=== PATIENT | female | born 1960 | race Caucasian/White ===

== ENCOUNTER 2018-03-01 20:24 | Observation (INO) ==
--- NOTE | 2018-03-01 20:48 | Emergency Department Report ---
Fall HPI - General Chief Complaint: Fall Stated Complaint: fell left hip pain Time Seen by Provider: 03/01/18 20:44 Source: patient Mode of arrival: EMS Limitations: no limitations - History of Present Illness HPI Narrative: Patient slipped on water inside her house just [employer] and fell, landing on her right hip/buttock. Patient has hx of arthritis and has somewhat chronic pain to hips. Patient has not ambulated or stood on her leg since the injury. Patient became hypotensive with sys pressure in the 60's and then 70's for EMS shortly after transfer. There was no indication by EMS or patient that hypotension was present prior to the fall. EMS gave 400 ml NS and pressure to 110 and then 102 systolically. Patient denies any feelings of being faint or like she was going to pass out during time of her low blood pressure. Patient states that she does get this way "at times" but it has never lasted this long. Takes losartin 50 mg po daily in the AM . Does not take any narcotic pain medication at home. Has not had N/v or other sources of volume depletion. No bloody stools and patient has had a hysterectomy. MD complaint: fall Onset (ago): minute(s) Fall from: standing Fall witnessed: yes, by family Place fall occurred: home Loss of consciousness: none Symptoms prior to fall: none - Related Data Home Medications Medication Instructions Recorded Confirmed Gabapentin 300 mg PO BID #0 06/28/12 03/01/18 Cozaar (losartan) 50 mg tablet 50 mg PO DAILY 90 Days #90 tab 09/20/17 03/01/18 conjugated estrogens 0.625 mg/gram 1 applicatio VG DAILY 30 Days #30 g 09/20/17 03/01/18 vaginal cream trazodone 50 mg tablet 50 mg PO HS 90 Days tab 09/20/17 03/01/18 Esomeprazole Magnesium [Nexium] 20 mg PO DAILY 10/10/17 03/01/18 Celecoxib [Celecoxib] 200 mg PO DAILY 03/01/18 03/01/18 Cyclobenzaprine HCl 10 mg PO BID 03/01/18 03/01/18 [Cyclobenzaprine HCl] Lifitegrast [Xiidra] 1 drop EACH EYE BID 03/01/18 03/01/18 Naltrexone HCl/Bupropion HCl 1 each PO DAILY 03/01/18 03/01/18 [Contrave ER 8-90 mg Tablet] Allergies Allergy/AdvReac Type Severity Reaction Status Date / Time No Known Allergies Allergy Verified 03/01/18 20:49 Review of Systems All systems: reviewed and negative except as stated Constitutional: Reports: as per HPI. Denies: fever, chills Eyes: Denies: eye discharge ENT: Denies: ear pain, throat pain Cardiovascular: Denies: chest pain, palpitations Respiratory: Denies: cough, dyspnea Gastrointestinal: Denies: abdominal pain, nausea Musculoskeletal: Reports: as per HPI, other (right hip, buttock) Integumentary: Denies: rash, swelling Neurological: Denies: headache, weakness, numbness, paresthesias PFSH Patient Stated Medical History Hypertension Yes Pneumonia Yes Sleep Apnea No Gastroesophageal Reflux Yes Disease Osteoarthritis Yes Depression Yes Clinic Medical History (Last Reviewed 01/28/18 @ 13:27 by REGGIE Hughes ) Arthritis (Acute Medical) High blood pressure (Acute Medical) Surgical History: Knee Surgery x2, Knee Replacements x2, Hysterectomy 1996,. RT SHOULDER DIAGNOSTIC ARTHROSCOPIC WITH DEBRIDEMENT OF ANTERIOR AND SUPERIOR LABRUM,LONG HEAD BICEPS AND RCR,BICEPS TENOTOMY 10-10-17 Family History: Family History (Last Reviewed 01/28/18 @ 13:27 by REGGIE Hughes) Mother Arthritis Cancer of breast High blood pressure Muscle disease Father Heart failure High cholesterol Cancer Maternal Grandmother Cancer Unknown Cancer - Social History Smoking status: Former smoker second hand exposure: No Substance use type: does not use Alcohol intake: current Alcohol intake frequency: other Household members: spouse Current occupational status: employed Does patient use chewing tobacco?: No Physical Exam - Limitations Limitations: no limitations - General General appearance: alert, in no apparent distress - Normal Exams: Head:: Normocephalic without trauma Eyes:: Pupils are PERRLA w/ EOMI, No scleral icterus, irritation, or foreign bodies noted ENMT:: No facial trauma, nasal exudates, pharyngeal erythema, or exudates are noted Neck:: Full range of motion, without adenopathy, JVD, bruits or thyromegaly Chest/Respirations:: Clear all white, with good airflow, and symmetry bilaterally Cardiovascular:: Regular rate and rhythm Abdomen:: Bowel sounds positive, soft, non-tender, non-distended, no hepatosplenomegaly, masses or bruits noted Lymphatic:: No lymphadenopathy, or lymphedema noted Integumentary:: No rashes, hives, or bruising noted, hair and nails, without abnormality Neurological:: Patient is alert, and oriented, cranial nerves, motor/sensory/ cerebellar, exams w/o gross deficits, to observation Psychiatric:: Patient exhibits, appropriate attention, emotion and affect - Expanded Lower Extremity Exam right Hip/Pelvis exam: Present: tenderness. Absent: external rotation, internal rotation Course Course Narrative: 2134: XRAY of hip/pelvis negative read by Dr Viera. Conrad given and will attempt to ambulate patient. 2219: Patient was able to ambulate with some discomfort but was able to do so. She walked to the bathroom to void and then felt like she was going to pass out. She was placed in a wheelchair and wheeled back to bed. Patient was placed supine and laid there for several minutes before blood pressure was obtained. Systolic pressure at that time was 101. Patient is currently on her 2nd liter of fluids having received 1 L that was started by EMS with initial low blood pressure reading. Will use additional IV fluids and check patient periodically for orthostatic hypotension. Patient denies any chest pain at any time and states that the reason she fell had nothing to do with feeling lightheaded. Reiterates that she had slipped on the slick floor. 2400: Patient had received 2 liters of NS and blood pressure reassessed. Initially 100 systolically but patient felt well. She was allowed to sit at bedside for 15 minutes and started to again feel light headed and "woozy" Blood pressure taken and sys pressure in 70's. Patient was placed back in bed and EKG and lab work will be done. 0035: Patients care will be assumed by Dr Viera. EKG done and is SR. Lab work being done. Dr Pena notified and patient will be admitted to telemetry for observation due to hypotension. Patient is in agreement. Troponin is pending; Other lab work is back. On review of lab hx , hgb in September was 13.6 and today is 11.2 however this was drawn over 1 hour post bolus of 2 liters NS. - Consultations Consultation #1: Dr Pena Time: 00:54 (will admit/telemetry,obs ) Vital Signs Temperature 98.0 F 03/01/18 20:26 Pulse Rate 85 03/01/18 20:26 Respiratory Rate 18 03/01/18 20:26 Blood Pressure 110/59 03/01/18 20:26 Pulse Oximetry 90 03/01/18 20:26 Temperature 98.0 F 03/01/18 20:26 Pulse Rate 85 03/01/18 20:26 Respiratory Rate 18 03/01/18 20:26 Blood Pressure 110/59 03/01/18 20:26 Pulse Oximetry 90 03/01/18 20:26 Fall - Differential Diagnosis Likely: syncope - Medical Records Attestation: I reviewed the patient's medical records. - Lab Data Attestation: I reviewed the patient's lab results. Result diagrams: 03/02/18 00:16 03/02/18 00:16 - Radiology Data Attestation: I reviewed the patient's radiology results. Disposition Clinical Impression: Orthostatic hypotension Contusion of hip, right Qualifiers: Encounter type: initial encounter Qualified Code(s): S70.01XA - Contusion of right hip, initial encounter Disposition: 02 To OBS [facility] [place] Print Language: Croatian Instructions: Hypotension (ED), Hip Contusion (ED) Additional Instructions: Prescriptions: No Action Gabapentin 300 mg PO BID #0 Esomeprazole Magnesium [Nexium] 20 mg PO DAILY Celecoxib [Celecoxib] 200 mg PO DAILY Naltrexone HCl/Bupropion HCl [Contrave ER 8-90 mg Tablet] 1 each PO DAILY Lifitegrast [Xiidra] 1 drop EACH EYE BID Cyclobenzaprine HCl [Cyclobenzaprine HCl] 10 mg PO BID trazodone 50 mg tablet 50 mg PO HS 90 Days tab conjugated estrogens 0.625 mg/gram vaginal cream 1 applicatio VG DAILY 30 Days #30 g Cozaar (losartan) 50 mg tablet 50 mg PO DAILY 90 Days #90 tab Referrals: Janna Palumbo MD [Primary Care Provider] - 1 Week Time of Disposition: 00:58 - Seen By: midlevel and physician
[2018-03-01] MEDS: NS 1,000 ML IV SCH (21:07)
[2018-03-01] MEDS: HYDROCODONE/APAP 5mg/325mg TABLET PO PRN (21:37)
[2018-03-02] MEDS ORDERED: ACETAMINOPHEN 325 MG TABLET PO PRN (01:41)
[2018-03-02] MEDS ORDERED: ONDANSETRON 4 MG/2 ML INJECTION IVP PRN (01:41)
[2018-03-02 01:43] VITALS: BMI 41.9
[2018-03-02] MEDS: NS 1,000 ML IV SCH ×3 (02:00→11:44)
--- NOTE | 2018-03-02 02:20 | History & Physical Report ---
History of Present Illness Date: 03/02/18 Chief complaint: right hip pain HPI: This is a 57 y/o female who is relatively healthy with a history of HTN and OA. The patient slipped on a wet floor tonight and landed on her right side. She has right hip pain and right knee pain. The patient presents to the ED where plain films of her hip are without evidence of fracture. While in the ED she c/ o light headedness. This occurred after the fall and she received no significant narcotic pain meds. Her blood pressure was in the 70's and after 2 liters of fluids her pressure continued to be low. The patient had no headache , no chest pain, no SOA, no PND, no palpitations. No abdomen pain, no nausea or vomiting, no change in her BM with a normal BM this am. no pain except for her right knee and hip. Cardiac workup in the ED was negative including EKG and troponin. The patient at this time will be admitted for monitoring and repeat labs to furthe assess the nature of her hypotension. she is not anticoagulated. She is denying and abdomen or back pain. Review of Systems Review of systems: negative except for described by HPI. Past Medical History Medical History: Medical History (Last Reviewed 01/28/18 @ 13:27 by REGGIE Hughes) Arthritis High blood pressure Surgical History: Knee Surgery x2, Knee Replacements x2, Hysterectomy 1996,. RT SHOULDER DIAGNOSTIC ARTHROSCOPIC WITH DEBRIDEMENT OF ANTERIOR AND SUPERIOR LABRUM,LONG HEAD BICEPS AND RCR,BICEPS TENOTOMY 10-10-17 Family History: Family History (Last Reviewed 01/28/18 @ 13:27 by REGGIE Hughes) Mother Arthritis Cancer of breast High blood pressure Muscle disease Father Heart failure High cholesterol Cancer Maternal Grandmother Cancer Unknown Cancer Family History: As Above - Social History Smoking status: Former smoker Substance use type: does not use Alcohol intake frequency: a few times a month Housing: house Household members: spouse service: No Current occupational status: employed 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 Current residence: Apartment/Private Home Medications Home Medications Medication Instructions Recorded Confirmed Type Gabapentin 300 mg PO BID #0 06/28/12 03/01/18 History Cozaar (losartan) 50 mg tablet 50 mg PO DAILY 90 Days #90 tab 09/20/17 03/01/18 History conjugated estrogens 0.625 mg/gram 1 applicatio VG DAILY 30 Days #30 g 09/20/17 03/01/18 History vaginal cream trazodone 50 mg tablet 50 mg PO HS 90 Days tab 09/20/17 03/01/18 History Esomeprazole Magnesium [Nexium] 20 mg PO DAILY 10/10/17 03/01/18 History Celecoxib [Celecoxib] 200 mg PO DAILY 03/01/18 03/01/18 History Cyclobenzaprine HCl 10 mg PO BID 03/01/18 03/01/18 History [Cyclobenzaprine HCl] Lifitegrast [Xiidra] 1 drop EACH EYE BID 03/01/18 03/01/18 History Naltrexone HCl/Bupropion HCl 1 each PO DAILY 03/01/18 03/01/18 History [Contrave ER 8-90 mg Tablet] Allergies Allergy/AdvReac Type Severity Reaction Status Date / Time No Known Allergies Allergy Verified 03/01/18 20:49 Exam Vital Signs: Temperature 98.0 F 03/01/18 20:26 Pulse Rate 80 03/02/18 01:15 Respiratory Rate 20 03/02/18 01:15 Blood Pressure 126/76 03/02/18 01:15 Pulse Oximetry 99 03/02/18 01:15 Telemetry Rhythm: Sinus Rhythm Height/Weight/BMI: Height 1.6 m Weight 107.4 kg Body Mass Index 41.9 - Constitutional Present: mild distress - Routine HEENT Exam Head: Present: normocephalic, atraumatic Eye: Present: EOMI, conjunctivae pink ENT: Present: mucous membranes moist - Routine Neck Exam Present: supple, full ROM - Routine Respiratory Exam Present: CTA bilaterally - Routine Cardiovascular Exam Present: RRR, no murmur - Routine Abdominal Exam Present: soft, normoactive bowel sounds, non distended, non tender - Routine Extremities Exam Comments: pain with flexion of her right hip and her right knee - Routine Back/Spine/Pelvis Exam Back/Spine: Present: full ROM - Routine Skin Exam Present: intact, dry, warm. Absent: mottling - Routine Neurological Exam Present: oriented X3, CN II-XII intact, moving all extremities, normal tone, vision grossly intact, hearing grossly intact, normal speech - Routine Psychiatric Exam Present: normal affect, normal thought process Results - Labs CBC & Chem 7: 03/02/18 06:00 03/02/18 06:00 Labs: reviewed and will be discussed below plain xray of right hip neg for acute fx. Assessment and Plan (1) Orthostatic hypotension Current visit: Yes Status: Acute (2) Contusion of hip, right Current visit: Yes Status: Acute (3) Normocytic anemia Current visit: Yes Status: Acute Assessment and Plan: 1. contusion to right hip and right knee acute POA; plain film of hip negative. PT and OT cx, if pain not improved consider CT of right hip to exclude occult fracture, oral pain meds prn 2. hypotension acute POA: cause not clear. possible related to acute pain. patient does take Cozaar and took today. No extra dosing that can be determined Currently improved after fluids. If still an issue in the am and rules out with labs being stable, consider echo to exclude effusion 3. HTN chronic not POA; at this time hold cozaar. (see comment above) 4. normocytic anemia chronic POA: down 2 grams over the past 2 years. repeat labs in the am. there is absolutely no evidence of acute bleeding in this patient. 5. DVT ppx; SCd, lovenox 6. gastric ppx; PPI DVT Prophylaxis: SCD's, Lovenox GI Prophylaxis: Protonix Resuscitation Status: Full Code - Time spent with patient Time with patient PN: 35 minutes - Physician Narrative Physician: Nubia Montgomery MD Narrative: Date: 03/02/18 Time: 1025 Dr. Pena's note reviewed. Mrs. Loving interviewed and examined. CC: Fall, right hip/knee pain with subsequent dizziness HPI: Mrs. Loving's 57-year-old female with prior bilateral right TKAs who slipped on a wet floor yesterday evening and landed on her right side. She was unable to get up independently due to right hip and knee pain. When she fell she had a clipper in her hand and struck her right mueller causing superficial laceration. She presented to the emergency room where x-rays of the right hip were unremarkable and she was initially preparing to discharge home however prior to discharge she was up to the restroom and became lightheaded at which time systolic blood pressure was in the 70s. She received 2 L of normal saline and blood pressure was persistently low and she remains symptomatic. EKG was unremarkable as was troponin. She denied chest pain or palpitations. She additionally denied head injury and no mental status was described. She denied preceding nausea/vomiting, diarrhea, impaired oral intake, or heat exposure. It was subsequently elected to hospitalize the patient and monitor due to hypotension. This morning she has been up to the bathroom independently without recurrent lightheadedness and is ambulating without assistance. PH/SH/FH: agree with that recorded above by Dr. Pena ROS: 10 point review as per history of present illness with patient reporting only incomplete flexion of the right knee and mild discomfort lateral right hip. EXAM: General-NAD, alert, fluent speech; 98.1, 127/72 supine, 127/68 standing, heart rate unchanged with orthostatic readings, respiratory rate 16, 94% saturation on room air HEENT-PERRL, EOMI without nystagmus, conjunctiva clear, sclera anicteric, conjugate gaze, facial structures symmetric, oropharynx clear, neck supple and without adenopathy Lungs-respirations nonlabored, good airflow, breath sounds clear Cardiac-regular rhythm, S1-S2 Abd-soft, nontender, bowel sounds present Ext-trace edema bilateral ankles Skin-bruising left knee, 5 mm V-shaped skin laceration anterior mid right mueller Musculoskeletal-range of motion right hip well preserved, mildly tender to palpation over right greater trochanter; full extension present right knee and able to flex to 100 at the right knee-slightly less and at the left; click present with flexion and extension right knee and probable small effusion but pain on palpation medially/laterally or with movement of patella. Neuro-cranial nerves III-12 intact, sensation intact to light touch 4 extremities, moving all extremities well, normal motor tone Psych-calm, cooperative DATA: Troponin < 0.012 x 2; hemoglobin 11.2-10.8 (13.6 on 10/01/17); remainder of chemistries including LFTs, TSH, and creatinine normal. EKG reviewed by myself demonstrating sinus rhythm, normal waveforms. X-ray of right hip reviewed by myself and is unremarkable although formal report is pending-previously cleared in the ER. Chest x-ray also reviewed by myself and unremarkable. A/P: Orthostatic hypotension, resolved after fluids Contusions right hip/right knee Laceration right mueller Anemia-chronic DJD Hypertension, well-controlled PT evaluation completed this morning clearing patient for routine activities using a cane which she has at home. Resume usual medications including gabapentin and Celebrex. Patient has additional pain medications if needed. Ice right knee and lateral right hip as needed; follow-up with Dr. Palumbo in the near future for reassessment of above injuries and anemia. If joint symptoms worsen may require follow-up with orthopedics. Tdap given. Stable for discharge. Hospital Course Summary Disclaimer: The visit summary below is not to be considered part of the above Progress Note.
[2018-03-02] MEDS: HYDROCODONE/APAP 5mg/325mg TABLET PO PRN ×2 (02:28→06:29)
[2018-03-02] MEDS ORDERED: PANTOPRAZOLE 20 MG TABLET PO SCH (06:30)
[2018-03-02 07:40] VITALS: RESP 16; TEMP 98.1
[2018-03-02] MEDS ORDERED: ENOXAPARIN 40 MG/0.4 ML INJECTION SQ SCH (09:00)
[2018-03-02] MEDS ORDERED: POLYETHYL GLYCOL 3350 17gm PACKET PO SCH (09:00)
[2018-03-02 09:59] VITALS: BP 135/66; PULSE 97; O2SAT 95
[2018-03-02] MEDS ORDERED: TETANUS, DIPHTHERIA, a PERTUSSIS (Tdap) 0.5ml INJECTION IM ONE (10:21)
--- NOTE | 2018-03-02 11:08 | Discharge Summary ---
Discharge Information Date of admission: 03/02/18 00:55 Anticipated date of discharge: 03/02/18 Attending Physician: Nubia Montgomery MD Primary care physician: Janna Palumbo MD - Discharge Diagnosis (1) Orthostatic hypotension Status: Acute (2) Contusion of hip, right Status: Acute (3) Normocytic anemia Status: Acute Orthostatic hypotension, resolved after fluids Contusions right hip/right knee Laceration right mueller Anemia-chronic DJD Hypertension, well-controlled - Laboratory Labs: 03/02/18 06:00 03/02/18 06:00 - Radiology Radiology: Right hip/chest x-ray both unremarkable although formal report is pending History of Present Illness HPI: This is a 57 y/o female who is relatively healthy with a history of HTN and OA. The patient slipped on a wet floor tonight and landed on her right side. She has right hip pain and right knee pain. The patient presents to the ED where plain films of her hip are without evidence of fracture. While in the ED she c/ o light headedness. This occurred after the fall and she received no significant narcotic pain meds. Her blood pressure was in the 70's and after 2 liters of fluids her pressure continued to be low. The patient had no headache , no chest pain, no SOA, no PND, no palpitations. No abdomen pain, no nausea or vomiting, no change in her BM with a normal BM this am. no pain except for her right knee and hip. Cardiac workup in the ED was negative including EKG and troponin. The patient at this time will be admitted for monitoring and repeat labs to furthe assess the nature of her hypotension. she is not anticoagulated. She is denying and abdomen or back pain. Objective Vital signs: Temperature 98.1 F 03/02/18 07:39 Pulse Rate 97 03/02/18 09:56 Respiratory Rate 16 03/02/18 09:55 Blood Pressure 135/66 03/02/18 09:56 Pulse Oximetry 95 03/02/18 09:56 See history of present illness Height/Weight/BMI: Height 1.6 m Weight 106.7 kg Body Mass Index 41.9 Hospital Course This is a general summary of the patient's hospital course. For more details refer to the complete medical record. Hospital course: PT evaluation completed this morning clearing patient for routine activities using a cane which she has at home. Resume usual medications including gabapentin and Celebrex. Patient has additional pain medications if needed. Ice right knee and lateral right hip as needed; follow-up with Dr. Palumbo in the near future for reassessment of above injuries and anemia. If joint symptoms worsen may require follow-up with orthopedics. Tdap given. Stable for discharge. Resuscitation Status: Full Code Discharge Plan - Discharge Disposition Discharge Date: 03/02/18 *Condition: Stable Reason For Visit (Visit label in EMR): hypotension - Discharge Medications *Discharge Medications: Continue Gabapentin 300 mg PO BID #0 Esomeprazole Magnesium [Nexium] 20 mg PO DAILY Celecoxib 200 mg PO DAILY Naltrexone HCl/Bupropion HCl [Contrave ER 8-90 mg Tablet] 1 each PO DAILY Lifitegrast [Xiidra] 1 drop EACH EYE BID Cyclobenzaprine HCl 10 mg PO BID trazodone 50 mg tablet 50 mg PO HS 90 Days tab conjugated estrogens 0.625 mg/gram vaginal cream 1 applicatio VG DAILY 30 Days #30 g Cozaar (losartan) 50 mg tablet 50 mg PO DAILY 90 Days #90 tab - Discharge Packet/Instructions *Diet: Regular *Activity: As tolerate, use cane when walking for stability *Pain Management/Treatment: Continue usual home medications; can take Celebrex 200 mg twice daily short-term and can increase Flexeril to 10 mg 3 times daily if you developed muscle spasms. Ice your knee for 15-20 minutes 3-4 times a day to decrease swelling and inflammation; your lateral hip will benefit from the same. *Wound Care: Monitor abrasion/laceration on your right mueller for increasing redness or any drainage. Otherwise simply clean with soap and water. Cover with a non-adherent dressing like a Band-Aid to avoid irritating the site. You received a Tdap vaccine on 03/02/18. Additional Instructions: Schedule follow-up appointment with Dr. Palumbo next week for reevaluation of your hip/knee and because your hemoglobin has dropped. *Expected Signs/Symptoms: Stiffness, pain, and some swelling in your hip and knee *Notify Physician if: Additional falls, significant swelling, your knee gives away or locks, or pain intensifies significantly. *During Business Hours Contact: Dr. Palumbo's office *After Business Hours Contact: Call [facility] at [phone] and ask that the on-call physician be paged *Pending Lab/Results: Follow up w/Provider (formal x-ray reports) - Referrals/Follow Up *Referrals/Follow Up: Janna Palumbo MD [Primary Care Provider] - (early next week) - Patient Handouts Patient Handouts: Knee Pain (GEN), Hip Contusion (GEN) - Dismissal Complete Discharge Instructions are:: Complete Physician Narrative - Narrative Attestation Narrative: Date: 03/02/18 Time: [id number]
--- NOTE | 2018-03-03 10:48 | XRay Report ---
INDICATION: hypotension PROCEDURE: CHEST 2-VIEWS UPRIGHT (PA & LAT) Encounter: Initial COMPARISON: October 01, 2017 FINDINGS: The lungs are clear without evidence of focal abnormal airspace opacity. There is no pleural effusion or pneumothorax. The heart size, mediastinal contours and pulmonary vascularity are within normal limits. Tortuous thoracic aorta. IMPRESSION: No acute cardiopulmonary disease. .
--- NOTE | 2018-03-03 10:56 | XRay Report ---
Indication: fall pain PROCEDURE: XR pelvis w/ 2 view RT hip: Encounter: Initial Comparison: October 29, 2017 Findings: There is no acute fracture, dislocation or malalignment identified. Impression: No acute osseous abnormality. .
== END 2018-03-02 11:35 | disposition home or self-care (01) ==
LOC: EDHOLD 20:24 → ED 20:24 → MED 03-02 01:40
PROVIDERS: ADMIT Emergency Medicine; ATTEND Internal Medicine